=== PATIENT | male | born 1990 | race Caucasian/White ===

== ENCOUNTER 2017-12-03 14:41 | Emergency (ER) | payer BC ==
[~2017-12-03] VITALS: Ht 167.6 cm; Wt 72.3 kg
[2017-12-03] MEDS ORDERED: ERYTHROMYC1 APPLICAT BOTH EYES (16:53)
[2017-12-03 17:14] VITALS: BP 132/68
== END 2017-12-03 17:14 | disposition home or self-care (01) ==
LOC: EME 14:41
DX: T15.02XA Foreign body in cornea, left eye, initial encounter (principal)
CPT/HCPCS: 99281; 99284